=== PATIENT | male | born 1970 | race Caucasian/White ===

== ENCOUNTER 2017-07-03 10:55 | Day surgery (SDC) | payer OTHER ==
[2017-07-02 09:16] VITALS: BMI 26.6
[~2017-07-03 10:55] MED LIST: LACTATED RINGERS 1,000 ML IV SCH
[2017-07-03 12:50] VITALS: TEMP 97.8
[2017-07-03] MEDS ORDERED: LIDOCAINE 1% 20 ML VIAL (10MG/ML) FOR IV START INTRADERMA ONE (12:50)
[2017-07-03] MEDS ORDERED: LIDOCAINE 1% INJ 10MG/ML (20 ML MDV) ONE (13:26)
[2017-07-03] MEDS ORDERED: PROPOFOL 10 MG/ML 20 ML VIAL IV ONE (13:26)
--- NOTE | 2017-07-03 13:45 | P.PCN ---
Date of Procedure: 07/03/17 Procedure(s) Performed: Brief history: Patient is a pleasant 46-year-old white male, scheduled for an elective upper endoscopy as well as colonoscopy as a part of evaluation of epigastric pain, heartburn and blood in the stool on and off for the last 2 months duration. Procedure performed: Esophagogastroduodenoscopy with biopsy Colonoscopy Preoperative diagnosis: Epigastric pain/heartburn Blood in the stool Anesthesia: [facility] [place] Procedure: After informed consent was obtained from the patient was brought into the endoscopy unit and IV sedation was administered by anesthesia under continuous monitoring. Initially upper endoscopy was done. The Olympus GF 160 video endoscope was inserted inserted into the mouth and esophagus intubated without any difficulty and was gradually advanced into the stomach and duodenum and carefully examined. The bulb and second part of the duodenum appeared normal. The scope was then withdrawn into the stomach adequately insufflated with air and upon careful examination the antrum had mild gastritis and biopsies were done from this area. The body, cardia and fundus appeared normal. The scope was then withdrawn into the esophagus. Small hiatal hernia noted. The GE junction was located at 40 cm to the incisors. It appeared regular with no erythema erosions or ulcerations. Rest of the esophagus appeared normal. Patient tolerated the procedure well. At this time the patient continued to remain sedation. Initial digital rectal examination was normal. Olympus CF 160 video colonoscope was then inserted into the rectum and gradually advanced to the cecum without any difficulty. Careful examination was performed as the scope was gradually being withdrawn. The prep was excellent. The cecum, ascending colon, transverse colon, descending colon, sigmoid colon and rectum appeared normal. At her sigmoidal diverticulosis seen. Retroflexion was performed in the rectum and small internal hemorrhoids were noted. Patient tolerated the procedure well. Impression: 1. Upper endoscopy revealed mild antral gastritis and a small hiatal hernia. 2. Colonoscopy revealed scattered sigmoid diverticulosis and small internal hemorrhoids. Recommendations: Findings of this examination were discussed with the patient as well as his family. He was advised to follow with the biopsy results. He will continue on Prilosec 20 mg daily and follow antireflux measures. He can have a repeat screening colonoscopy in 10 years.
[2017-07-03 13:57] VITALS: RESP 16
[2017-07-03 14:30] VITALS: BP 113/72; PULSE 70
== END 2017-07-03 14:31 | disposition home or self-care (01) ==
LOC: ORWHC2ENDO 10:55
PROVIDERS: ATTEND Internal Medicine Gastroenterology
DX: K29.50 Unspecified chronic gastritis without bleeding (principal); K21.9 Gastro-esophageal reflux disease without esophagitis; K44.9 Diaphragmatic hernia without obstruction or gangrene; K57.30 Diverticulosis of large intestine without perforation or abscess without bleeding; K64.8 Other hemorrhoids; Z79.899 Other long term (current) drug therapy
CPT/HCPCS: 88305; 45378; 43239; J2001; J2704

== ENCOUNTER → 2017-09-03 | Outpatient (CLI) | payer OTHER ==
--- NOTE | 2017-09-03 18:57 | CONS ---
CONSULTATION DATE OF SERVICE: 09/03/2017 This 46-year-old gentleman has been evaluated in the sleep center for difficulties in initiating sleep and multiple awakenings from sleep. HISTORY OF PRESENT ILLNESS/SLEEP-WAKE EVALUATION: Patient's usual sleep schedule is from 10 p.m. until 5:30 or 5:45 a.m. on working days and until 6 a.m. on weekends; but for about 4 times per week he has problems with falling asleep, and when he goes to bed at 10 he falls asleep only at about 11 p.m. or a a.m. When he is in bed, he always thinks about his life and work. He has set TV set in the bedroom. He tries to watch TV to switch his mind to what he is watching on TV instead of thinking, but it does not always work, and he has problems with falling asleep. He usually sleeps on the side position, with witnessed snoring, awakenings from sleep, sweating, restless legs and heartburn. Positive history of episodes of kicking at night. No history of hypnagogic hallucinations, sleep paralysis or cataplexy. [place] Sleepiness Scale is 4. PAST MEDICAL HISTORY: Basically negative for any significant medical problems. PAST SURGICAL HISTORY: None. REVIEW OF SYSTEMS: Awakenings from sleep. Difficulties with initiating sleep. FAMILY HISTORY: Emphysema. SOCIAL HISTORY: Positive for smoking one quarter to one half pack a day for 10 years; quit about 2 years ago. Alcohol consumption occasional. PHYSICAL EXAMINATION: GENERAL A pleasant gentleman without distress. VITAL SIGNS: BP 119/77, HR 75, RR 14, height 5 feet 5 inches, weight 168.2, BMI 27.9, temperature 97.8, oxygen saturation at room air 97% HEENT: PERRLA, EOMI. Evaluation of oropharynx showed tongue protrudes midline; short distance between soft palate and posterior pharyngeal wall. Slight restriction of nasal breathing. NECK: Supple. No JVD. Thyroid is not palpable. LUNGS: Clear to percussion and to auscultation. Good air exchange. No wheezing or rhonchi. HEART: S1, S2 regular. No murmurs, gallops or rubs. ABDOMEN: Soft and nontender. Bowel sounds are present. No organomegaly appreciated. EXTREMITIES : No clubbing or cyanosis. PRODUCTION LINE: Awake, alert, and oriented X3. Cranial nerves 2 to 7 intact. There is no fasciculation or atrophy. noted. No focal deficits observed. IMPRESSION: 1. Difficulties with initiating sleep, possibly secondary to restless legs syndrome. 2. Psychophysiological insomnia. 3. Multiple awakenings from sleep, short distance between soft palate and posterior wall, restriction of nasal breathing; possible obstructive sleep apnea-hypopnea syndrome. 4. Slight restriction of nasal breathing. PLAN: 1. Polysomnography for evaluation of patient's breathing during sleep. 2. CPAP/BiPAP titration if sleep study confirms obstructive sleep apnea-hypopnea syndrome. 3. Preferable position during sleep on the side. 4. No driving if patient feels any sleepiness. 5. I will see patient for follow up visit to explain results of testing and following plan. 6. I discussed with the patient psychophysiological recommendations for insomnia, which include stimulus control, paradoxical intention, worry time, no watching clock. We may consider using sleep restriction therapy , but after any other physical abnormalities of sleep are ruled out and treated if necessary. Thank you very much for referring this patient for consultation. Sincerely, Ramesh Hannah MD, PhD, FAASM Diplomat of [employer] Supervisor of [facility] [place] MMODL / IJN: [id number] /
== END | disposition home or self-care (01) ==
LOC: SLEEP 16:23
PROVIDERS: ATTEND Internal Medicine
DX: G47.09 Other insomnia (principal); M27.8 Other specified diseases of jaws; R06.89 Other abnormalities of breathing; R06.83 Snoring; J43.9 Emphysema, unspecified; Z87.891 Personal history of nicotine dependence
CPT/HCPCS: 99211

== ENCOUNTER → 2019-06-16 | Outpatient (CLI) | payer OTHER ==
--- NOTE | 2019-06-16 16:22 | CT ---
EXAMINATION TYPE: CT iac w con DATE OF EXAM: 06/16/2019 COMPARISON: None HISTORY: Right sided ear pain and headaches. CT DLP: 150 mGycm Automated exposure control for dose reduction was used. CONTRAST: CT scan of the IACs is performed with IV Contrast, patient injected with 100ml mL of Isovue 300. FINDINGS: The external auditory canals are patent bilaterally. Mastoid air cells show opacification on the right, temporal bone shows inflammatory change within much of the air cells, there is soft tis bobby, at the level of the auditory ossicles on the right there is close proximity to some inflammatory change. External auditory canal shows abnormal inflammatory change The middle ear ossicles are symme tric and there is some soft tissue present anterior and lateral to the auditory ossicles on the right . There is no evidence of suspicious surrounding soft tissue density to suggest cholesteatoma on the left. The scutum is preserved bilaterally. The cochlea and the semicircular canals are symmetric a nd unremarkable. Vestibular aqueduct and internal carotid canal appear unremarkable. Temporomandibu lar joints are maintained bilaterally. Visualized sinuses show possible mucus retention cyst or poly p in the bilateral maxillary sinus. IMPRESSION: Inflammatory changes as described. No erosion of the scutum. Difficult to exclude cholest eatoma.
== END | disposition home or self-care (01) ==
LOC: RADCTMAIN 15:02
PROVIDERS: ATTEND Otolaryngology
DX: H71.90 Unspecified cholesteatoma, unspecified ear (principal); H91.90 Unspecified hearing loss, unspecified ear
CPT/HCPCS: 70481; Q9967